=== PATIENT | female | born 1955 | race Caucasian/White ===

== ENCOUNTER 2016-08-03 20:55 | Emergency (ER) | payer BC ==
[2016-08-03 22:15] VITALS: BP 142/64
--- NOTE | 2016-08-03 22:41 | UC ---
Abdominal Pain Female HPI - HPI Summary HPI Summary: The patient comes in today for: 1. Left lower abdominal pain: Onset: yesterday. Palliative/provocative: Tylenol and "drinking" helped "a little bit." Quality: Dull Region: LLQ Severity: 10 Time: Constant Associated symptoms: Fevers: None. Last BM: 7 PM tonight--normal. Colonoscopy: July 07 of this year. Diverticulosis was found. She had diverticulitis before about 8-10 months ago. Her symptoms then are the same as the ones now. * - History of Current Complaint Chief Complaint: UCAbdominalPain Stated Complaint: LEFT SIDE ABD PAIN/HX DIVERTICULITIS Time Seen by Provider: 08/03/16 22:36 Hx Obtained From: Patient Allergies/Adverse Reactions: Allergies Allergy/AdvReac Type Severity Reaction Status Date / Time No Known Allergies Allergy Verified 08/03/16 22:01 PMH/Surg Hx/FS Hx/Imm Hx Previously Healthy: No - asthma, anxiety, gerd/hiatal hernia, allergies. Other History Of: Negative For: HIV, Hepatitis B, Hepatitis C, Anticoagulant Therapy - Surgical History Surgical History: Yes Surgery Procedure, Year, and Place: C-Sections, 1981 1983; Hysterectomy, 1997; Breast Reduction, 2005; Right Tibia Plate, 2003; Appendectomy, 1997; Cholecystectomy, 1983 - Family History Known Family History: Positive: Cardiac Disease, Other - Mom lung CA Negative: Hypertension - Social History Occupation: Employed Full-time Alcohol Use: Rare Substance Use Type: None, Prescribed Smoking Status (MU): Never Smoked Tobacco - Immunization History Most Recent Influenza Vaccination: 1508-8699 Most Recent Pneumonia Vaccination: November 2013 Review of Systems Constitutional: Negative Skin: Negative Eyes: Negative ENT: Negative Respiratory: Negative Cardiovascular: Negative Gastrointestinal: Abdominal Pain Genitourinary: Negative All Other Systems Reviewed And Are Negative: Yes Physical Exam Triage Information Reviewed: Yes Appearance: No Pain Distress - when sitting still., Well-Nourished Vital Signs: Initial Vital Signs Temp 98.3 F 08/03/16 22:03 Pulse 80 08/03/16 22:03 Resp 20 08/03/16 22:03 BP 142/64 08/03/16 22:03 Pulse Ox 96 08/03/16 22:03 Vital Signs Reviewed: Yes Eyes: Positive: Conjunctiva Clear. Negative: Discharge ENT: Positive: Hearing grossly normal. Negative: Nasal congestion, TMs normal, TM bulging, TM dull, TM red, Tonsillar swelling, Tonsillar exudate Dental: Negative: Gross Decay/Caries @, Dental Fracture @ Neck: Positive: Supple, Nontender, No Lymphadenopathy. Negative: Nuchal Rigidity Respiratory: Positive: Lungs clear, No respiratory distress, No accessory muscle use. Negative: Crackles, Wheezing Cardiovascular: Positive: RRR, No Murmur Abdomen Description: Positive: No Organomegaly, Soft. Negative: Nontender - She had tenderness to palpation of the left lateral and left lower abdominal area. There was no rebound. No marked percussion tenderness., Distended, Guarding, Peritoneal Signs Musculoskeletal: Positive: Strength Intact, ROM Intact, No Edema Neurological: Positive: Alert, Muscle Tone Normal Psychological: Positive: Age Appropriate Behavior, Consolable Skin: Negative: rashes, breakdown Abd Pain Female Course/Dx - Course Course Of Treatment: Patient was told that I recommend that she go to the ER for evaluation of her abdominal pain. The patient does not want to do this as she feels like she only needs antibiotics at this time. - Differential Dx/Diagnosis Provider Diagnoses: Abdominal pain (diverticulitis) Discharge - Discharge Plan Condition: Stable Disposition: HOME Patient Education Materials: Diverticulitis (ED), Diverticulitis Diet (ED) Referrals: Sushila Armstrong PA [Primary Care Provider] - 1 Day (If you are not going to the ER tonight, please see your primary care provider tomorrow for re- evaluation. If you get worse, please be seen sooner.)
[2016-08-03] MEDS ORDERED: Amoxicillin/Clavulanate TAB* 875 MG PO ONE (22:57)
== END 2016-08-03 23:12 | disposition home or self-care (01) ==
LOC: UCCORT 20:55
DX: K57.92 Diverticulitis of intestine, part unspecified, without perforation or abscess without bleeding (principal)
CPT/HCPCS: 99213; A9270-GY; G0463

== ENCOUNTER 2018-04-27 10:49 | Emergency (ER) | payer BC ==
[2018-04-27 11:25] VITALS: BP 139/63
--- NOTE | 2018-04-27 11:37 | UC ---
Respiratory Complaint HPI - HPI Summary HPI Summary: cough x 10 days cough is dry , harsh mild nasal congestion , pnd, no sore throat, no fever, no chills no sob or wheezing was seen by her pcp one week ago , dx with viral illness not getting any better - History of Current Complaint Chief Complaint: UCRespiratory Stated Complaint: COUGH, CHEST CONGESTION Time Seen by Provider: 04/27/18 11:20 Hx Obtained From: Patient Onset/Duration: Gradual Onset, Lasting Days - 10, Still Present Timing: Constant Severity Initially: Moderate Severity Currently: Moderate Pain Intensity: 0 Character: Cough: Nonproductive Aggravating Factors: Exertion, Deep Breaths Alleviating Factors: Nothing Associated Signs And Symptoms: Positive: URI, Nasal Congestion. Negative: Dyspnea, Fever, Chills, Wheezing - Allergies/Home Medications Allergies/Adverse Reactions: Allergies Allergy/AdvReac Type Severity Reaction Status Date / Time No Known Allergies Allergy Verified 04/27/18 11:21 Home Medications: Home Medications Aspirin EC TAB* [Ecotrin EC Low Dose 81 MG*] 1 tab BEDTIME 04/27/18 [History Confirmed 04/27/18] Escitalopram Oxalate [Lexapro] 1 tab BEDTIME 04/27/18 [History Confirmed ] PMH/Surg Hx/FS Hx/Imm Hx - Additional Past Medical History Additional PMH: acid reflux allergies anxiety diverticulitis GI/ History: Gastroesophageal Reflux Psychological History: Anxiety Other History Of: Negative For: HIV, Hepatitis B, Hepatitis C, Anticoagulant Therapy - Surgical History Surgical History: Yes Surgery Procedure, Year, and Place: C-Sections, 1981 1983; Hysterectomy, 1997; Breast Reduction, 2005; Right Tibia Plate, 2003; Appendectomy, 1997; Cholecystectomy, 1983 - Family History Known Family History: Positive: Cardiac Disease, Other - Mom lung CA Negative: Hypertension - Social History Alcohol Use: None Substance Use Type: None Smoking Status (MU): Never Smoked Tobacco - Immunization History Most Recent Influenza Vaccination: [id number] Most Recent Pneumonia Vaccination: November 2013 Review of Systems All Other Systems Reviewed And Are Negative: Yes Constitutional: Positive: Negative Skin: Positive: Negative Eyes: Positive: Negative ENT: Positive: Sinus Congestion Respiratory: Positive: Cough Cardiovascular: Positive: Negative Gastrointestinal: Positive: Negative Is Patient Immunocompromised?: No Physical Exam Triage Information Reviewed: Yes Appearance: Well-Appearing, No Pain Distress, Well-Nourished Vital Signs: Initial Vital Signs Temp 98.1 F 04/27/18 11:22 Pulse 79 04/27/18 11:22 Resp 19 04/27/18 11:22 BP 139/63 04/27/18 11:22 Pulse Ox 98 04/27/18 11:22 Vital Signs Reviewed: Yes Eye Exam: Normal Eyes: Positive: Conjunctiva Clear ENT Exam: Normal ENT: Positive: Normal ENT inspection, Hearing grossly normal, Pharynx normal Dental Exam: Normal Neck exam: Normal Neck: Positive: Supple, Nontender, No Lymphadenopathy Respiratory Exam: Normal Respiratory: Positive: Chest non-tender, Lungs clear, Normal breath sounds Cardiovascular Exam: Normal Cardiovascular: Positive: RRR, No Murmur, Pulses Normal Abdominal Exam: Normal Musculoskeletal Exam: Normal Neurological Exam: Normal Psychological Exam: Normal Skin Exam: Normal UC Diagnostic Evaluation - Laboratory O2 Sat by Pulse Oximetry: 98 Respiratory Course/Dx - Differential Dx/Diagnosis Provider Diagnosis: Bronchitis Discharge - Sign-Out/Discharge Documenting (check all that apply): Patient Departure All imaging exams completed and their final reports reviewed: No Studies - Discharge Plan Condition: Stable Disposition: HOME Prescriptions: Codeine Phosphate/Guaifenesin [Cheratussin AC] 10 ml PO Q8HR #120 ml MDD 30 ml predniSONE [Prednisone 20 MG TAB] 20 mg PO BID #10 tablet Patient Education Materials: Acute Bronchitis (ED) Referrals: Joyce Bass PA [Primary Care Provider] - 7 Days - Billing Disposition and Condition Condition: STABLE Disposition: Home
== END 2018-04-27 11:37 | disposition home or self-care (01) ==
LOC: UCCORT 10:49
DX: J40 Bronchitis, not specified as acute or chronic (principal); R09.81 Nasal congestion; R09.82 Postnasal drip; F41.9 Anxiety disorder, unspecified; Z79.899 Other long term (current) drug therapy; Z79.82 Long term (current) use of aspirin
CPT/HCPCS: 99212; G0463

== ENCOUNTER 2019-02-03 10:48 | Emergency (ER) | payer BC ==
[2019-02-03 12:28] VITALS: BP 147/59
--- NOTE | 2019-02-03 13:06 | UC ---
Complaint Female HPI - HPI Summary HPI Summary: 64 y/o female presents to the urgent care c/o Painful , burning with urination and blood in the urine since this morning. 2 episodes of loose stool this morning. Pt states pain w/ urination is 4/10. Pt has not taken any medications to alleviate symptoms. Pt denies fever, flank pain, lower back pain, abdominal pain, N/V/D, vaginal discharge, SOB, chest pain, Yoon, dizziness, pelvic pain. Denies Hx of STD's. - History Of Current Complaint Chief Complaint: UCGU Stated Complaint: URINARY COMPLAINT Time Seen by Provider: 02/03/19 12:34 Hx Obtained From: Patient ?: No - Menopausal Onset/Duration: Gradual Onset, Lasting Days - today, Still Present Timing: Intermittent, Lasting Seconds Severity Initially: Mild Severity Currently: Moderate Pain Intensity: 5 Pain Scale Used: 0-10 Numeric Character: Burning Aggravating Factor(s): Urination Alleviating Factor(s): Nothing Associated Signs And Symptoms: Positive: Negative. Negative: Fever, Back Pain, Vaginal Discharge, Genital Swelling Related Hx: Similar Episode/Dx as: - UTI - Risk Factors Ectopic Risk Factor: Negative - Allergies/Home Medications Allergies/Adverse Reactions: Allergies Allergy/AdvReac Type Severity Reaction Status Date / Time No Known Allergies Allergy Verified 02/03/19 12:18 PMH/Surg Hx/FS Hx/Imm Hx Previously Healthy: Yes - Pt denies PMHX Other History Of: Negative For: HIV, Hepatitis B, Hepatitis C, Anticoagulant Therapy - Surgical History Surgical History: Yes Surgery Procedure, Year, and Place: C-Sections, 1981 1983; Hysterectomy, 1997; Breast Reduction, 2005; Right Tibia Plate, 2003; Appendectomy, 1997; Cholecystectomy, 1983 - Family History Known Family History: Positive: Cardiac Disease, Other - Mom lung CA Negative: Hypertension - Social History Occupation: Employed Full-time Lives: With Family Alcohol Use: Rare Substance Use Type: None Smoking Status (MU): Never Smoked Tobacco - Immunization History Most Recent Influenza Vaccination: [id number] Most Recent Pneumonia Vaccination: November 2013 Review of Systems All Other Systems Reviewed And Are Negative: Yes Constitutional: Positive: Negative Skin: Positive: Negative Eyes: Positive: Negative ENT: Positive: Negative Respiratory: Positive: Negative Cardiovascular: Positive: Negative Gastrointestinal: Positive: Diarrhea - 2 episodes of loose stool Genitourinary: Positive: Dysuria, Hematuria, Frequency, Urgency Motor: Positive: Negative Neurovascular: Positive: Negative Musculoskeletal: Positive: Negative Neurological: Positive: Negative Psychological: Positive: Negative Is Patient Immunocompromised?: No Physical Exam - Summary Physical Exam Summary: VITAL SIGNS: Reviewed. GENERAL: Patient is a well developed and nourished obese female who is sitting comfortable in the examining table. Patient is not in any acute respiratory distress. HEAD AND FACE: No signs of trauma. No ecchymosis, hematomas or skull depressions. No sinus tenderness. EYES: PERRLA, EOMI x 2, No injected conjunctiva, clear watery eyes, no nystagmus. No photophobia. EARS: Hearing grossly intact. Ear canals and tympanic membranes are within normal limits. MOUTH: pharynx with no erythema, no exudates,no palatal petechiae. no B/L tonsillar enlargement Uvula in midline. NECK: Supple, trachea is midline, no lymphadenopathy, no JVD, no carotid bruit, no c-spine tenderness, neck with full ROM. CHEST: Symmetric, no tenderness at palpation LUNGS: Clear to auscultation bilaterally. No wheezing or crackles. CVS: Regular rate and rhythm, S1 and S2 present, no murmurs or gallops appreciated. ABDOMEN: Soft, non-tender. No signs of distention. No rebound no guarding, and no masses palpated. Bowel sounds are normal. BACK:no scoliosis or lesions, non tender to palpation, No B/L CVA tenderness EXTREMITIES: FROM in all major joints, no edema, no cyanosis or clubbing. NEURO: Alert and oriented x 3. No acute neurological deficits. Speech is normal and follows commands. SKIN: Dry and warm Triage Information Reviewed: Yes Vital Signs: Initial Vital Signs Temp 97.6 F 02/03/19 12:20 Pulse 79 02/03/19 12:20 Resp 18 02/03/19 12:20 BP 147/59 02/03/19 12:20 Pulse Ox 97 02/03/19 12:20 Complaint Female Dx - Course Course Of Treatment: 64 y/o female presents to the urgent care c/o Painful , burning with urination and blood in the urine since this morning. 2 episodes of loose stool this morning. Pt states pain w/ urination is 4/10. Pt has not taken any medications to alleviate symptoms. Pt denies fever, flank pain, lower back pain, abdominal pain, N/V/D, vaginal discharge, SOB, chest pain, Yoon, dizziness, pelvic pain. Denies Hx of STD's. Hx obtained. PE: WNL.UA ordered. UA results: Blood 3+, Leukoesterase 3+. Pt Rx Bactrim PO x 7 days. Pyridium 100mg PO TID x 2 days. Advised to increase fluid intake. Urine sent for culture if any abnormality Pt will be notified for further treatment.Pt's BP is elevated today advised to decrease salt in diet, monitor BP and f/u with PCP for further management. Pt advised If symptoms do not improve to return to the urgent care or f/u with PCP. Pt understood and agreed. Left the clinic ambulating. - Differential Dx/Diagnosis Differential Diagnosis/HQI/PQRI: Cervicitis, Pelvic Inflammatory Disease, Renal Colic, Sexually Transmitted Disease, Ureteral Stone, Urinary Tract Infection Provider Diagnosis: UTI (urinary tract infection), Elevated BP without diagnosis of hypertension Discharge ED - Sign-Out/Discharge Documenting (check all that apply): Patient Departure - D/C home All imaging exams completed and their final reports reviewed: No Studies - Discharge Plan Condition: Stable Disposition: HOME Prescriptions: Phenazopyridine TAB* [Pyridium 100 mg TAB*] 100 mg PO TID #6 tab Sulfamethox/Trimethoprim DS* [Bactrim DS 800/160 TAB*] 1 tab PO BID #14 tab Patient Education Materials: Urinary Tract Infection in Women (ED) Referrals: Joyce Bass PA [Primary Care Provider] - 2 Days Additional Instructions: 1- Please take Bactrim PO x 7 days. Pyridium 100 mg PO TID x 2 days to alleviate urinary symptoms. Increase increase fluid intake. drink cranberry juice. 2-Urine sent for culture if any abnormality, you will be notified for further treatment. 3-If symptoms do not improve please return to the urgent care or f/u with your PCP for further management. 4-Your BP is elevated today. please decrease salt in your diet, monitor BP and if it continues to be elevated please f/u with your PCP for further management. - Billing Disposition and Condition Condition: STABLE Disposition: Home
== END 2019-02-03 13:16 | disposition home or self-care (01) ==
LOC: UCCORT 10:48
DX: N39.0 Urinary tract infection, site not specified (principal); R31.9 Hematuria, unspecified; R03.0 Elevated blood-pressure reading, without diagnosis of hypertension; R19.7 Diarrhea, unspecified
CPT/HCPCS: 81003; 87086; 99212; G0463